=== PATIENT | male | born 1985 | race Two or more races ===

== ENCOUNTER 2019-09-27 19:28 | Emergency (ER) | payer BC ==
[~2019-09-27] VITALS: Ht 165.1 cm; Wt 63.5 kg
[2019-09-27 19:42] VITALS: BP 134/99
--- NOTE | 2019-09-27 19:46 | NUR ---
PATIENT CAME TO ER BED 10 C/O RIGHT EAR PAIN SINCE SUNDAY (09/22/2019). PATIENT ALSO STATES, "A FLY WENT IN MY EAR AND TRAVELED DOWN MY THROAT SINCE THE INTIAL EAR PAIN STARTED." YELLOW DISCHARGE NOTED ON THE RIGHT EAR. AAOX4. NO SOB. BREATHING EVENLY AND UNLABORED ON ROOM AIR. PATIENT'S KNIFE IS REMOVED AND GIVEN TO MOTHER(Linda).
--- NOTE | 2019-09-27 19:49 | NUR ---
SEEN AND EXAMINED BY KILO ALEMAN.
--- NOTE | 2019-09-27 20:07 | NUR ---
Patient discharged to home in stable condition. Written and verbal after care instructions given. Patient verbalizes understanding of instruction.
== END 2019-09-27 20:09 | disposition home or self-care (01) ==
LOC: ER 19:31
DX: H60.91 Unspecified otitis externa, right ear (principal)

== ENCOUNTER 2020-11-11 16:52 | Emergency (ER) | payer BC, MEDICAID ==
[~2020-11-11] VITALS: Ht 167.6 cm; Wt 65.8 kg
--- NOTE | 2020-11-11 17:17 | NUR ---
BIBRA FOR POSS. SYNCOPE; BYSTANDER CALLED 911- ACCU CHECK 75 MM/DL ADMITS TO USING [facility] TODAY. THE PATIENT IS ALERT AND ORIENTED X3. IN ROOM AIR AND DENIES SOB. RESPIRATION REGULAR AND UNLABORED. ATTACHED TO THE MONITOR.
[2020-11-11] MEDS ORDERED: LORAZEPAM 1 MG TABLET PO ONE (17:30)
[2020-11-11] MEDS ORDERED: IV NS 0.9% 1,000 ML BAG IV ONE (17:30)
--- NOTE | 2020-11-11 17:39 | NUR ---
Started LAC G 20, blood specimen collected and sent to the lab. Saline locked.
[2020-11-11 17:42] LABS: BASOPHILS % (AUTO) 0.5 % (0.0-2.0); EOSINOPHILS % (AUTO) 0.2 % (0.0-6.0); HEMATOCRIT 38 % (39-51); HEMOGLOBIN 12.8 g/dL (13.5-17.5); LYMPHOCYTES # (AUTO) 1.6 K/uL (0.8-4.8); MEAN CORPUSCULAR HGB CONC 34 g/dl (31.0-36.0); MEAN CORPUSCULAR VOLUME 91 fL (80-96); MONOCYTES # (AUTO) 0.8 K/uL (0.1-1.30); MONOCYTES % (AUTO) 10.3 % (2.0-12.0); NEUTROPHILS # (AUTO) 5.1 K/uL (1.8-8.9); PLATELET COUNT (AUTO) 297 K/uL (150-450); RED BLOOD CELL COUNT(AUTO) 4.12 MIL/uL (4.5-6.0); WHITE BLOOD COUNT (AUTO) 7.5 K/uL (4.3-11.0)
[2020-11-11 17:57] LABS: CARBON DIOXIDE 24 mmol/L (21-32); CHLORIDE 102 mmol/L (98-107); CREATININE 1.2 mg/dL (0.6-1.3); GLUCOSE 86 mg/dL (74-106); POTASSIUM 3.8 mmol/L (3.5-5.1); SODIUM SERUM 139 mmol/L (136-145); UREA NITROGEN, BLOOD 13 mg/dL (7-18)
[2020-11-11 18:03] LABS: ALANINE AMINOTRANSFERASE 44 U/L (12-78); ALBUMIN 4.7 g/dL (3.4-5.0); ALCOHOL, BLOOD < 3 mg/dL (0-0); ALKALINE PHOSPHATASE 105 U/L (46-116); ASPARTATE AMINOTRANSFERASE 30 U/L (15-37); BILIRUBIN,DIRECT 0.3 mg/dL (0.0-0.2); TOTAL PROTEIN, SERUM 7.9 g/dL (6.4-8.2)
[2020-11-11 18:05] LABS: ACETAMINOPHEN < 2 ug/ml (10-30)
--- NOTE | 2020-11-11 18:48 | NUR ---
IV removed. Catheter intact and site benign. Pressure and 4x4 applied to site. No bleeding noted.Patient discharged to home in stable condition. Written and verbal after care instructions given. Patient verbalizes understanding of instruction.
[2020-11-11 18:49] VITALS: BP 131/84
== END 2020-11-11 18:49 | disposition home or self-care (01) ==
LOC: ER 17:40
DX: R55 Syncope and collapse (principal); F41.1 Generalized anxiety disorder; F12.10 Cannabis abuse, uncomplicated; E86.0 Dehydration; Z59.0 Homelessness
CPT/HCPCS: 36415; 71045-TC; 80048-TC; 80076-TC; 84484-TC; 85025-TC; G0480

== ENCOUNTER 2023-04-18 00:27 | Emergency (ER) | payer MEDICAID, OTHER ==
[~2023-04-18] VITALS: Ht 175.3 cm; Wt 65.8 kg
[2023-04-18] MEDS ORDERED: TDAP [DIPH/PERTUSSIS/TET] 0.5 ML VIAL IM ONE ×2 (00:50→01:00)
[2023-04-18 01:12] LABS: BASOPHILS % (AUTO) 0.4 % (0.0-2.0); EOSINOPHILS % (AUTO) 0.5 % (0.0-6.0); HEMATOCRIT 37 % (39-51); HEMOGLOBIN 12.4 g/dL (13.5-17.5); LYMPHOCYTES # (AUTO) 0.9 K/uL (0.8-4.8); LYMPHOCYTES % (AUTO) 16.2 % (20.0-44.0); MEAN CORPUSCULAR HEMOGLOBIN 31 PG (26.0-33.0); MEAN CORPUSCULAR HGB CONC 33 g/dl (31.0-36.0); MEAN CORPUSCULAR VOLUME 92 fL (80-96); MONOCYTES # (AUTO) 0.4 K/uL (0.1-1.30); MONOCYTES % (AUTO) 6.6 % (2.0-12.0); NEUTROPHILS # (AUTO) 4.3 K/uL (1.8-8.9); NEUTROPHILS % (AUTO) 76.3 % (43.0-81.0); PLATELET COUNT (AUTO) 242 K/uL (150-450); RED BLOOD CELL COUNT(AUTO) 4.05 MIL/uL (4.5-6.0); RED CELL DISTRIBUTION WIDTH 13.8 % (11.5-15.0); WHITE BLOOD COUNT (AUTO) 5.7 K/uL (4.3-11.0)
[2023-04-18 01:19] LABS: CALCIUM, SERUM 9.3 mg/dL (8.5-10.1); CARBON DIOXIDE 28 mmol/L (21-32); CHLORIDE 105 mmol/L (98-107); GLUCOSE 98 mg/dL (74-106); POTASSIUM 3.4 mmol/L (3.5-5.1); SODIUM SERUM 140 mmol/L (136-145); UREA NITROGEN, BLOOD 17 mg/dL (7-18)
[2023-04-18 01:25] LABS: ALANINE AMINOTRANSFERASE 24 U/L (12-78); ALBUMIN 3.9 g/dL (3.4-5.0); ALCOHOL, BLOOD < 3 mg/dL (0-10); ALKALINE PHOSPHATASE 108 U/L (46-116); ASPARTATE AMINOTRANSFERASE 22 U/L (15-37); BILIRUBIN,DIRECT 0.1 mg/dL (0.0-0.2); BILIRUBIN,TOTAL 0.3 mg/dL (0.2-1.0); TOTAL PROTEIN, SERUM 7.5 g/dL (6.4-8.2)
[2023-04-18 01:34] LABS: ACETAMINOPHEN <10 ug/ml (10-30); SALICYLATE 1.5 mg/dL (2.8-20.0)
[2023-04-18 02:01] LABS: APPEARANCE,URINE CLEAR (CLEAR); BILIRUBIN,URINE NEGATIVE (NEGATIVE); BLOOD, URINE 2+ Ery/uL (NEGATIVE); COLOR,URINE YELLOW (YELLOW); KETONES,URINE NEGATIVE (NEGATIVE); LEUKOCYTE ESTERASE ,URINE NEGATIVE (NEGATIVE); NITRITE, URINE NEGATIVE (NEGATIVE); PROTEIN,URINE NEGATIVE (NEGATIVE); UGLUCOSE NEGATIVE (NEGATIVE); UROBILINOGEN,URINE 0.2 EU/dL (0.2)
[2023-04-18 02:10] LABS: ADD URINE CULTURE NO; BACTERIA,URINE Rare /HPF (None Seen); SQUAMOUS EPITHELIAL CELL,UR Few /HPF (None Seen); WBC,URINE 0-2 /HPF (0-3)
[2023-04-18 02:13] LABS: AMPHETAMINE, URINE POSITIVE (NEGATIVE); BARBITURATE, URINE NEGATIVE (NEGATIVE); BENZODIAZEPINE, URINE NEGATIVE (NEGATIVE); CANNABINOID, URINE NEGATIVE (NEGATIVE); COCCAINE, URINE NEGATIVE (NEGATIVE); OPIATE, URINE NEGATIVE (NEGATIVE); PHENCYCLIDINE SCREEN,URINE NEGATIVE (NEGATIVE)
[2023-04-18 10:49] VITALS: BP 118/77; TEMP 97.9; O2SAT 97
== END 2023-04-18 10:50 | disposition home or self-care (01) ==
LOC: ER 00:29
DX: T14.91XA Suicide attempt, initial encounter (principal); Z59.00 Homelessness unspecified; X78.8XXA Intentional self-harm by other sharp object, initial encounter; Y93.89 Activity, other specified; Y92.89 Other specified places as the place of occurrence of the external cause; Y99.8 Other external cause status
CPT/HCPCS: 36415; 80048-TC; 80076-TC; 81001; 85025-TC; 90715; G0480